=== PATIENT | male | born 2005 ===

== ENCOUNTER 2024-05-01 02:46 | Emergency (ER) | payer BC, SELFPAY ==
[2024-05-01 02:56] VITALS: BP 132/97; PULSE 76; RESP 16; TEMP 36.4; O2SAT 98; BMI 21.7
--- NOTE | 2024-05-01 03:27 | ED_ITS ---
HPI - General Adult General Chief complaint: Headache/Migraine Stated complaint: Disorientation, vision problems, dizzy Time Seen by Provider: 05/01/24 03:05 Source: patient Mode of arrival: ambulatory Limitations: no limitations History of Present Illness HPI narrative: 19-year-old male presents the emergency department 2 hours after onset of headache. Headache started with spots in his vision and then progressed to a feeling of slight dizziness. He describes the dizziness as feeling slightly lightheaded and just ?off?. There was no focal neurological change, vertigo. He has had no head injury. There was no thunderclap. He then gradually started to get a headache within about 20-[address] over to the hospital, he said he had some bilateral hand tingling but that only lasted a couple of minutes and has fully resolved. It was equal and symmetric. He denies a prior history of similar symptoms. Does not use any anticoagulants. Unsure if he has a family history of migraines. He Google his symptoms and he discovered this was likely either migraine or could be a sign of a stroke or other neurological condition and presents to the emergency department. He did not try taking any Tylenol, ibuprofen or other interventions. At this time, he is not having any neurological changes like vision changes, speech difficulty, numbness tingling or movement deficit. He reports that he has had concussions from sports years ago and says that the disoriented feeling felt a little like that meaning post concussion type feeling but without any recent head injury. Headache is in the bilateral frontal area. No fevers, neck stiffness. He has some mild nausea but no vomiting. No recent illness. Does use marijuana most days, last use was about 5:00 a.m. yesterday morning, works night shift supervisor. No prior cranial imaging, seizures or neurological conditions. States that his past medical history is benign, no major long-term health problems. No recent surgeries, no prescriptions, no allergies. Smokes marijuana denies any other recreational pharmaceuticals. ROS is notable for the head and neurological changes as described above, otherwise denies times 12 systems. Related Data Home Medications ?Medication ?Instructions ?Recorded ?Confirmed No Known Home Medications 05/01/24 05/01/24 Allergies Allergy/AdvReac Type Severity Reaction Status Date / Time No Known Drug Allergies Allergy Verified 05/01/24 02:59 [facility] Social History Smoking Status: Current some day smoker What tobacco products do you use: cigarettes Do you use any of these nicotine containing products: Vaping Products Second hand tobacco smoke exposure: No How often do you have a drink containing alcohol: monthly or less How many standard drinks containing alcohol do you have on a typical day: 1 or 2 How often do you have six or more drinks on one occasion: Never AUDIT-C Alcohol total score: 1 Non-prescribed substance use: marijuana (any form) Non-prescribed substance use details: last marijuana use 04/30 service: No Exam Const: Vital Signs, click to edit/add: Vital Signs - 24 hr 05/01/24 02:56 Temperature 97.6 F Pulse Rate [Pulse Oximeter] 76 Respiratory Rate 16 Blood Pressure [Ri ght Upper Arm] 132/97 H Pulse Oximetry 98 Oxygen Delivery Me thod Room Air Documenting provider has reviewed patient's vital signs: yes Common normals: no apparent distress, oriented x3 and alert Other: Mildly anxious but appropriate. No signs of intoxication or impairment. Good historian. Appears well nourished, well groomed and well hydrated. HENMT: Common normals: normocephalic, head/scalp atraumatic, TM's normal bilaterally, moist oral mucous membranes, oropharynx normal and dentition normal Head and scalp: normocephalic and atraumatic Face and sinus: normal facial exam Tympanic membrane: TM's normal bilaterally Throat: posterior oropharynx normal Eye: Common normals: PERRL, EOMs intact bilaterally, conjunctivae normal, no scleral icterus, no papilledema and normal visual altamirano by confrontation General eye: normal appearance of both eyes Conjunctiva: conjunctiva(e) normal Pupil: PERRL Direct Ophthalmoscopy: no papilledema Neck & C-Spine: Common normals: full ROM, no lymphadenopathy and no meningeal signs Resp: Common normals: normal respiratory effort, no use of accessory muscles and clear to auscultation bilaterally Effort & inspection: able to speak in complete sentences Auscultation: clear to auscultation bilaterally Cardio: Common normals: regular rate, regular rhythm, S1 normal heart sound, S2 normal heart sound and no murmurs Rate: regular rate Rhythm: regular rhythm Heart sounds: S1 normal and S2 normal Extremity: Common normals: normal to inspection, full ROM, normal capillary refill and no pedal edema Neuro: Common normals: oriented x3, CN's II-XII intact bilaterally, moves all extremities, no focal motor deficits, no sensory deficits noted and gait normal Sensorium/orientation: alert Meningeal signs: no meningeal signs Coordination/balance: tandem gait normal, does not sway with eyes open, Romberg test negative, Normal rapid alternating movements of the distal upper extremity present (Neuro) and Normal rapid alternating movements of the distal lower extremity present (Neuro) Speech: speech normal Gait (neuro): normal gait Motor exam: strength 5/5 throughout, no pronator drift, no tremor noted and no movement abnormalities noted Coordination: tandem gait normal, does not sway with eyes open, rapid alternating movement UE normal and rapid alternating movement LE normal Psych: Appearance: grossly normal Attitude: engaged Insight: fair Judgement: fair Skin: Common normals: no rashes or lesions noted General skin exam: no rashes or lesions noted Course Course ED Course: Healthy 19-year-old male with normal neurological exam reporting symptoms most likely consistent with aura and migraine. No head injury or trauma. Exam is reassuring. Counseled patient that his symptoms seem like they are most likely caused by a migraine though I cannot necessarily exclude intracranial pathology such as a stroke, tumor, other neurological process without the use of CT scan. I discussed that unfortunately CT scan does carry risk of radiation. With a fully reassuring exam and a history that is most likely consistent with a migraine, his age and other risk factors, I would recommend that we bypassed CT and just treat symptomatically. He was understanding of this rationale as well. Will give oral Toradol, Zofran and sumatriptan. Patient counseled on typical course of migraine. Continue using Tylenol and ibuprofen at home as needed, rest for tonight, lots of fluids. May return to work tomorrow. If he has recurrent symptoms, would recommend primary care outpatient follow-up to discuss preventative plan. Discussed plan for abortive treatment with aura symptoms again in the future. He verbalizes understanding and agreement of plan. Return to the ED with worsening neurological changes fever and or other unexpected changes. Vital Signs Vital signs: Initial Vital Signs Temperature 97.6 F 05/01/24 02:56 Temperature Source Temporal Artery Scan 05/01/24 02:56 Pulse Rate 76 05/01/24 02:56 Pulse Rhythm Regular 05/01/24 02:56 Respiratory Rate 16 05/01/24 02:56 Blood Pressure 132/97 H 05/01/24 02:56 Blood Pressure Mean 108 H 05/01/24 02:56 Blood Pressure Position Supine 05/01/24 02:56 Pulse Oximetry 98 05/01/24 02:56 Oxygen Delivery Method Room Air 05/01/24 02:56 Vital Signs Temperature 97.6 F 05/01/24 02:56 Pulse Rate 76 05/01/24 02:56 Respiratory Rate 16 05/01/24 02:56 Blood Pressure 132/97 H 05/01/24 02:56 Pulse Oximetry 98 05/01/24 02:56 Oxygen Delivery Method Room Air 05/01/24 02:56 Temperature 97.6 F 05/01/24 02:56 Pulse Rate 76 05/01/24 02:56 Respiratory Rate 16 05/01/24 02:56 Blood Pressure 132/97 H 05/01/24 02:56 Pulse Oximetry 98 05/01/24 02:56 Oxygen Delivery Method Room Air 05/01/24 02:56 Discharge Plan Discharge Clinical Impression: Migraine with aura Patient Disposition: Home, Self-Care Condition: Stable Instructions: Migraine Headache (ED) Additional Instructions: As we discussed, your exam is most consistent with a migraine with aura and less likely consistent with a stroke or other dangerous neurological process. As we discussed, based on your very reassuring exam, I do not recommend a CT scan today. CT scans do have a significant amount of radiation which often is more harmful than helpful. As discussed, it is impossible for us to know at this time if you will have more migraines. I would recommend that you make a point of drinking plenty of water, avoid unhealthy habits and get plenty of sleep. The slight vision changes and feeling disoriented are classic warning symptoms that a migraine is coming on. In the future, if you are able to take 3 ibuprofen and drink a large glass of water at the onset of those symptoms, you will likely be able to prevent the migraine from worsening. Once the migraine has started, I recommend taking ibuprofen 600 mg every 6 hours and/or Tylenol 1000 mg every 6 hours in addition. Migraines tend to last 12-48 hours. Any severe worsening, persistent vomiting, loss of neurological function on 1 side of the body, difficulty swallowing, difficulty producing speech or other worrisome changes would warrant a return to the emergency department and imaging of your head. You may return to work tomorrow. Activity Level: Light activity Discharge Diet: Regular Prescriptions: No Action No Known Home Medications Stand Alone Forms: [employer] Info Instructions
--- OUTSIDE RECORDS SUMMARY | 2024-05-01 03:41 | XMS_ITS | Clinical Summary ---
Author Organization [facility] Address [place], [place] [address] Care Team Providers Care Looping Inspector Name Role Phone Beronica Tsai MD Primary Care Prov ider Allergies No known active allergies Medications Medication Sig Dispensed Refills Start Date End Date Status FLUoxetine (PROZAC) 20 mg capsuleIndications:De pression, unspecified depression type TAKE 1 CAPSULE(20 MG) BY MOUTH EVERY MORNING 90 Capsule 11/18/2023 Active Active Problems Problem Noted Date Diagnosed Date Well child check 01/18/2013 Immunizations Name Administration Dates Next Due AMB Influenza, IIV3 (Age >=3 years)(Flu Clinic Only) 08/04/2013,08/13/2010,08/14/2008 AMB Influenza, IIV4 PF (=>6 mos Flulaval,Fluzone Fluarix)(Flu Clinic Only) 07/17/2020,08/04/2019,08/13/2018,08/06,07/21/2014 COVID-19 vaccine (Icera [email or web address] 30mcg/0.3mL) PF, MDV 02/18/2021,01/28/2021 DTaP 06/25/2005 [id number] (Pediarix) 2004,2004,0 2004 DTaP-IPV (Kinrix) 03/19/2009 HIB PRP-OMP (PedvaxHIB) 06/25/2005,2004, HPV 9 (Gardasil 9) 03/09/2016,10/16/2015, 015 Hepatitis A (Peds) 08/04/2012,08/07/2011 Hepatitis B (Peds) 2004 Influenza, IIV3 (Age 6-35 mos) 09/22/2005 Influenza, IIV3 (Age >=3 years) 08/04/20 12,08/07/2011,10/02/2009,09/07 Influenza, IIV4 07/31/2021,08/05/2017,08/02/2015 MMR 03/19/2009,03/22/2006 Meningococcal Vaccine (Menveo) 06/03/2021,2015 Pneumococcal conj 7-Valent (Prevnar 7) 0 06/25/2005,2004,2004,06/04 Tdap 10/16/2015 Varicella Vaccine 03/19/2009,09/22/2005 Family History * Patient is adopted Medical History Relation Name Comments Unknown Father Adopted Unknown Mother Adopted Relation Name Status Comments Father Mother Social History Tobacco Use Types Packs/Day Years Used Date Smoking Tobacco: Never Smokeless Tobacco: Never Tobacco Cessation:Counseling Given: Yes Comments:no passive smoke exposure Alcohol Use Standard Drinks/Week Comments Yes 0 (1 standard drink = 0.6 oz pur e alcohol) occassionally PHQ-2 Answer Date Recorded PHQ-2 TOTAL SCORE 1 03/31/2023 Social Connections Answer Date Recorded Frequency of Communication with Friends and Fami ly Not on file 10/18/2021 Financial Resource Strain Answer Date R ecorded Difficulty of Paying Living Expenses Not on file 10/18/2021 Difficulty of Paying Living Expenses Not on file 10/18/2021 Sex and Gender Information Value Date Recorded Sex Assigned at Not on file Gender Identity Not on file Sexual Orientation Not on file Obstetrics History Last Filed Vital Signs Vital Sign Reading Time Taken Comments Blood Pressure 130/70 03/31/2023 1:19 PM CDT Pulse 83 03/31/2023 1:19 PM CDT Temperature 36.4 ??C (97.5 ??F) 11/02/2019 3:10 PM CS T Respiratory Rate 16 04/13/2019 12:03 PM CDT Oxygen Saturation 96% 03/31/2023 1:19 PM CDT Inhaled Oxygen Concentration - - Weight 67.4 kg (148 lb 9.6 oz) 03/31/2023 1:19 P M CDT Height 184.5 cm (6' 0.64) 12/08/2022 2:03 PM CS T Body Mass Index - - Plan of Treatment Health Maintenance Due Date Last Done Comments HIV for age 15-65 2019 Hepatitis C screening for age 18-79 2022 Well Child Check for age 3-20 07/31/2022 07/31/2021, 04/13/2019, 03/10/2016, Additional history exists COVID-19 vaccine series ( season) 2023 11/14/2021, 02/18/2021, 01/28/2021 BMI (ht and wt on same day) for age 18+ 12/08/2023 12/08/2022, 10/20/2022 Depression screening for age 12+ 03/31/2024 03/31/2023, 12/08/2022, 10/20/2022, Additional history exists Influenza for age 9-49 06/18/2024 , 07/17/2020, 08/04/2019, Additional history exists Tetanus booster 10/16/2025 10/16/2015 Pneumococcal series for age 6-64 Aged Out 06/25/2005, 2004, 2004, Additional history exists No longer eligible based on patient's age to complete this topic Tdap Completed 10/16/2015 HPV series for age 9-26 Completed 03/09/20 16, 10/16/2015, 08/02/2015 Meningococcal series for age 11-21 Completed 06/03/2021, 03/09/2016 Care Teams Looping Inspector Relationship Specialty Start Date End Date Beronica Tsai MD [address] [place] [address] PCP - General 02/06/06
== END 2024-05-01 03:45 | disposition home or self-care (01) ==
LOC: ED 03:40
PROVIDERS: Emergency Provider Family Medicine; PCP Family Medicine
DX: G43.109 Migraine with aura, not intractable, without status migrainosus (principal)
CPT/HCPCS: 99283

== ENCOUNTER 2025-07-23 16:48 | Emergency (ER) | payer BC, SELFPAY ==
--- OUTSIDE RECORDS SUMMARY | 2025-07-23 16:50 | XMS_ITS | Clinical Summary ---
Author Organization [employer] [facility] Address [address] [place] [id number] Care Team Providers Care Network Solutions Architect Name Role Phone Beronica Tsai MD Primary Care Prov ider Allergies No known active allergies Medications FLUoxetine (PROZAC) 20 mg capsuleIndicatio ns:Depression, unspecified depression type TAKE 1 CAPSULE(20 MG) BY MOUTH EVERY MORNING 90 Capsule 11/18/2023 Active Active Problems Problem Noted Date Diagnosed Date Well child check 01/18/2013 Immunizations Immunization Administration Dates Next Due AMB Influenza, IIV3 (Age >=3 years)(Flu Clinic Only) 08/04/2013,08/13/2010,08/14/2008 AMB Influenza, IIV4 PF (=>6 mos Flulaval,Fluzone Fluarix)(Flu Clinic Only) 07/17/2020,08/04/2019,08/13/2018,08/06,07/21/2014 COVID-19 vaccine ([employer] 30mcg/0.3mL) PF, MDV 02/18/2021,01/28/2021 DTaP 06/25/2005 [id number] (Pediarix) 2004,2004,0 2004 DTaP-IPV (Kinrix) 03/19/2009 HIB PRP-OMP (PedvaxHIB) 06/25/2005,2004, HPV 9 (Gardasil 9) 03/09/2016,10/16/2015, 015 Hepatitis A (Peds) 08/04/2012,08/07/2011 Hepatitis B (Peds) 2004 Influenza, IIV3 (Age 6-35 mos) 09/22/2005 Influenza, IIV3 (Age >=3 years) 08/04/20 12,08/07/2011,10/02/2009,09/07 Influenza, IIV4 07/31/2021,08/05/2017,08/02/2015 MENINGOCOCCAL VACCINE 2 VIAL [id number] (MENVEO) 06/03/2021,03/09/2016 MMR 03/19/2009,03/22/2006 Pneumococcal conj 7-Valent (Prevnar 7) 0 06/25/2005,2004,2004,06/04 [...] Recorded Sex Assigned at Not on file 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 Gender Identity Not on file Sexual Orientation Not on file Obstetrics History Last Filed Vital Signs Vital Sign Reading Time Taken Comments Blood Pressure 130/70 03/31/2023 1:19 PM CDT Pulse 83 03/31/2023 1:19 PM CDT Temperature 36.4 C (97.5 F) 11/02/2019 3:10 PM PAINTER AND DECORATOR Respiratory Rate 16 04/13/2019 12:03 PM CDT [...] Hepatitis C screening for age 18-79 2022 BMI (ht and wt on same day) for age 18+ 12/08/2023 12/08/2022, 10/20/2022 Depression screening for age 12+ 03/31/2024 03/31/2023, 12/08/2022, 10/20/2022, Additional history exists COVID-19 vaccine series (2024- season) 2025 11/14/2021, 02/18/2021, 01/28/2021 Influenza Vaccine (#1) 2025 , 07/17/2020, 08/04/2019, Additional history exists Tetanus booster 10/16/2025 10/16/2015 RSV vaccine for adults or (1 - 1-dose 75+ series) 2079 Hepatitis B series for 19+ Completed 10/21, 2004, 2004, Additional history exists Pneumococcal series for age 6-49 Aged Out 06/25/2005, 2004, 2004, Additional history exists No longer eligible based on patient's age to complete this topic HPV series for age 9-45 Completed 03/09/20 16, 10/16/2015, 08/02/2015 Meningococcal series for age 11-21 Completed 06/03/2021, 03/09/2016 Insurance [facility] Care Teams Network Solutions Architect Relationship Specialty Start Date End Date Beronica Tsai MD [address] [place] [address] PCP - General 02/06/06
[2025-07-23 16:57] VITALS: BP 119/85; PULSE 90; RESP 20; TEMP 37; O2SAT 96; BMI 23.1
--- NOTE | 2025-07-23 17:04 | ED.GENADULT ---
HPI - General Adult General Time Seen by Provider: 17:04 Date Seen: 07/23/25 Chief complaint: Chemical Exposure Stated complaint: Bleach Ingestion -Accident Time Seen by Provider: 07/23/25 17:01 Source: patient, RN notes reviewed and old records reviewed Mode of arrival: ambulatory Limitations: no limitations Related Data Home Medications ?Medication ?Instructions ?Recorded ?Confirmed No Known Home Medications 05/01/24 07/23/25 Allergies Allergy/AdvReac Type Severity Reaction Status Date / Time No Known Drug Allergies Allergy Verified 07/23/25 17:01 [facility] Social History Smoking Status: Current some day smoker What tobacco products do you use: cigarettes Do you use any of these nicotine containing products: Vaping Products Second hand tobacco smoke exposure: No How often do you have a drink containing alcohol: monthly or less How many standard drinks containing alcohol do you have on a typical day: 1 or 2 How often do you have six or more drinks on one occasion: Never AUDIT-C Alcohol total score: 1 Non-prescribed substance use: marijuana (any form) Non-prescribed substance use details: last marijuana use 04/30 service: No Exam Narrative: Exam Narrative: General: Well-developed and well-nourished, no acute distress Head: Atraumatic and normocephalic Eyes: Pupils are equal reactive, extraocular motions intact, conjunctiva clear ENT: External nose and ears are normal, posterior pharynx without erythema or exudate Neck: No midline cervical tenderness, full spontaneous range of motion the neck, trachea midline, no adenopathy Heart: Regular rate and rhythm no murmurs or thrills Lungs: Clear to auscultation bilaterally without wheezes or crackles Abdomen: Soft, nontender, nondistended with active bowel sounds Musculoskeletal: No tenderness, deformity, or edema Neurologic: Awake, alert, and oriented x3, no gross focal neurologic deficits, cranial nerves intact as tested Psych: Mood and affect are appropriate Skin: No rashes Const: Vital Signs, click to edit/add: Vital Signs - 24 hr 07/23/25 16:57 Temperature 98.6 F Pulse Rate [Pulse Oximeter] 90 Respiratory Rate 20 Blood Pressure [Ri ght Forearm] 119/85 Pulse Oximetry 96 Oxygen Delivery Me thod Room Air Course Course ED Course: Reviewed prior emergency department visit from April 2024 which was for headache, treated and discharged. Vital Signs Vital signs: Initial Vital Signs Temperature 98.6 F 07/23/25 16:57 Temperature Source Temporal Artery Scan 07/23/25 16:57 Pulse Rate 90 07/23/25 16:57 Pulse Rhythm Regular 07/23/25 16:57 Respiratory Rate 20 07/23/25 16:57 Blood Pressure 119/85 07/23/25 16:57 Blood Pressure Mean 96 07/23/25 16:57 Blood Pressure Position Sitting 07/23/25 16:57 Pulse Oximetry 96 07/23/25 16:57 Oxygen Delivery Method Room Air 07/23/25 16:57 Vital Signs Temperature 98.6 F 07/23/25 16:57 Pulse Rate 90 07/23/25 16:57 Respiratory Rate 20 07/23/25 16:57 Blood Pressure 119/85 07/23/25 16:57 Pulse Oximetry 96 07/23/25 16:57 Oxygen Delivery Method Room Air 07/23/25 16:57 Temperature 98.6 F 07/23/25 16:57 Pulse Rate 90 07/23/25 16:57 Respiratory Rate 20 07/23/25 16:57 Blood Pressure 119/85 07/23/25 16:57 Pulse Oximetry 96 07/23/25 16:57 Oxygen Delivery Method Room Air 07/23/25 16:57 Discharge Plan Discharge Clinical Impression: Ingestion of bleach Patient Disposition: Home, Self-Care Condition: Stable Additional Instructions: If bleach can cause local irritation of the throat and stomach. You may have some nausea. Dalton liquid diet for 24 hours if you are having pain in the throat. Avoid alcohol and caffeinated beverages. Activity Level: Activity as Tolerated Discharge Diet: Regular Prescriptions: No Action No Known Home Medications Follow Up/Referrals: Beronica Tsai MD [Primary Care Provider, Family Practice] Stand Alone Forms: [employer] Info Instructions
== END 2025-07-23 17:28 | disposition home or self-care (01) ==
LOC: ED 17:27
PROVIDERS: Emergency Provider Family Medicine; PCP Family Medicine
DX: T54.91XA Toxic effect of unspecified corrosive substance, accidental (unintentional), initial encounter (principal)
CPT/HCPCS: 99283